=== PATIENT | male | born 1960 | race Caucasian/White ===

== ENCOUNTER → 2021-09-08 13:58 | Outpatient (BNVA) | payer OTHER, SELFPAY | PROVIDERS: PCP Family Medicine; Visit Provider Surgery | DX: Z12.11 Encounter for screening for malignant neoplasm of colon (principal) | CPT/HCPCS: 99202 ==

== ENCOUNTER 2021-10-21 06:46 | Day surgery (SDC) | payer OTHER, SELFPAY ==
[2021-10-19 13:27] VITALS: BMI 25.8
[2021-10-21 07:20] VITALS: BP 125/79; PULSE 61; RESP 18; TEMP 36.8; O2SAT 95
[2021-10-21] MEDS: sodium chloride 0.9% 1,000 ML 30 ML IV (07:29)
--- NOTE | 2021-10-21 08:12 | ANES.PREANE2 ---
Pre-Anesthetic Assessment Height/Weight: Height 1.73 m Weight 77.111 kg Temp Pulse Resp BP Pulse Ox 98.2 F 61 18 125/79 95 10/21/21 07:20 10/21/21 07:20 10/21/21 07:20 10/21/21 07:20 10/21/21 07:20 Operation Date: 10/21/21 08:15 Proposed Procedures p Colonoscopy 90169,Z12.11(Not Applicable) - Silvino Bass DO Familial anesthetic complications: none Was Beta Sly taken within 24 hours: N/A Was Clonidine taken within 24 hours: N/A Last intake: Intake Last Liquid Date 10/20/21 Last Liquid Time 21:00 Last Solid Date 10/19/21 Last Solid Time 19:00 Social No alcohol and No tobacco Exam alert, oriented x 3, clear to auscultation bilaterally and regular rate & rhythm Airway Submandibular: within normal limits Cervical ROM: within normal limits Mallampati: Class II Dentition: full History/ROS No significant history except as noted Anesthetic Plan ASA status: 1 Anesthesia: MAC Other: Difficulty hearing Medications/Allergies Home Medications Medication Instructions Recorded Confirmed Last Taken Type No Known Home Medications 09/08/21 10/19/21 Unknown History Allergies Allergy/AdvReac Type Severity Reaction Status Date / Time No Known Allergies Allergy Verified 10/19/21 13:18 Current Medications Generic Name Dose Route Start Last Admin Trade Name Freq PRN Reason Stop Dose Admin Sodium Chloride 1,000 mls @ 30 mls/hr 10/21/21 07:00 10/21/21 07:29 Sodium Chloride 0.9% IV 10/22/21 06:59 30 mls/hr .Q24H GAGE Administration PFSH Anesthesia Family History Other CAD (coronary artery disease) Cancer Dementia Denies family history of Diabetes Chronic kidney disease (CKD) Lung disease Stroke Social History Smoking and tobacco status: never smoked Second hand smoke exposure: No Alcohol intake: never Lives independently: Yes Household members: spouse Marital status: Data Anesthesia Cardiac Studies: No Data to Display
--- NOTE | 2021-10-21 08:48 | PM.HP ---
Providers/Chief Complaint Primary Care Provider: Verna Aguila MD Chief Complaint: Need for screening colonoscopy History of Present Illness Aneudy Tarango is a 61 year old male who presents for screening colonoscopy. He denies any complaints. This is an update H&P. Review of Systems General: Reports: 10 or more systems reviewed and unremarkable except in HPI and below Medications/Allergies Home Medications Medication Instructions Recorded Confirmed Last Taken Type No Known Home Medications 09/08/21 10/19/21 Unknown History Allergies Allergy/AdvReac Type Severity Reaction Status Date / Time No Known Allergies Allergy Verified 10/19/21 13:18 PFSH Acute PFSH: Family History Other CAD (coronary artery disease) Cancer Dementia Denies family history of Diabetes Chronic kidney disease (CKD) Lung disease Stroke Social History Smoking and tobacco status: never smoked Second hand smoke exposure: No Alcohol intake: never Lives independently: Yes Household members: spouse Marital status: Vitals/I&O/Wt Last Vital Signs Temp 98.2 F 10/21/21 07:20 Pulse 61 10/21/21 07:20 Resp 18 10/21/21 07:20 BP 125/79 10/21/21 07:20 Pulse Ox 95 10/21/21 07:20 Weight last 48 hrs Weight 170 lb Physical Exam Narrative: General : Patient is well developed , no acute distress, oriented x3 Head : Normal cephalic, a-traumatic. Ears : Pinnae and external canal are normal. Hearing is normal. Eyes : PERRLA, Sclera and injection are normal. No conjunctival discharge. Nose : Mucous membranes are without erythema. Throat : buccal mucosa is normal, gums are without significant recession or hypertrophy. Lungs : Equal chest rise bilaterally, no use of accessory muscles, trachea is midline. Cor : Rate and rhythm are normal. Abdomen : Soft, ND, NT, no g/r/m Extremities : No edema, no cyanosis or clubbing, dorsalis pedis pulses are present bilaterally, non-tender to palpation of calves. Upper extremities are normal bilaterally. Back : non-tender to palpation, no CVA tenderness. Neuro : CN II - XII intact, Upper and lower extremities have equal and full strength A&P Assessment and plan (1) Colon cancer screening: Status: Acute Plan Colonoscopy The risks and benefits of the procedure, including bleeding, infection, intestinal perforation requiring surgery, missed lesion, or explained to the patient. He is understanding of the risks and wishes to proceed. Attestations Medical Necessity Statement*: Patient will be discharged home Coding Level of Care Code Acute Director Of Institutional Giving for [facility] Fwd Diagnoses Colon cancer screening Z12.11
[2021-10-21 09:37] VITALS: BP 98/64; PULSE 47; RESP 18; TEMP 36.3; O2SAT 100
--- NOTE | 2021-10-21 16:16 | ANE.PACU2 ---
Inpatient post-anesthesia follow up: Airway intact: Yes Vital signs: Temperature 97.4 F Pulse Rate 47 Respiratory Rate 18 Blood Pressure 98/64 Pulse Oximetry 100 Oxygen Delivery Me thod Room Air Oxygen Flow Rate Fraction of Inspir ed Oxygen Hydration adequate: Yes Nausea and vomiting: No Pain level: 1 Mental status: Baseline
== END 2021-10-21 10:03 | disposition home or self-care (01) ==
PROVIDERS: PCP Family Medicine; Visit Provider Surgery
PROC: 0DJD8ZZ Inspection of Lower Intestinal Tract, Via Natural or Artificial Opening Endoscopic (ICD-10-PCS; CPT 45378; principal; 2021-10-21 08:15)
DX: Z12.11 Encounter for screening for malignant neoplasm of colon (principal)
CPT/HCPCS: 45378; J2704; J7030

== ENCOUNTER 2022-12-12 15:10 | Emergency (ER) | payer OTHER, SELFPAY ==
[2022-12-12 15:19] VITALS: BP 130/84; PULSE 67; RESP 16; TEMP 36.7; O2SAT 96; BMI 25.8
--- NOTE | 2022-12-12 16:27 | W.ED.EAR ---
HPI - Ear Problem General: Chief complaint: Ear Stated complaint: left ear blood inside of ear Time Seen by Provider: 12/12/22 16:08 Source: patient Mode of arrival: ambulatory Limitations: no limitations History of Present Illness: Patient is a nice 62-year-old male who presents to ED today with a complaint of discharge from his left ear. Patient states last week sometime he got stung by multiple hornets to his scalp but does not remember getting stung anywhere close to his ear so he is not sure if this incident is related. He states shortly after he began noticing some clear purulent drainage from the ear canal. He states the following day discharge seemed to improve thus delaying medical care however today he began noticing further drainage and some blood from the ear canal. He has not had any known injury or trauma to the ear. He does wear chronic hearing aids. 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 MD Complaint: ear discharge Location: left ear Severity: mild Relieving factors: nothing Exacerbating factors: nothing Discharge from ear: yes - clear, yes - bloody and yes - purulent Associated symptoms: Denies ear or mastoid pain, fever(s), headache(s) or tinnitus Treatment prior to arrival: attempt at ear wax removal Review of Systems Const: Denies: fever(s), chills, body aches, fatigue or malaise ENMT: Reports: ear discharge and change in hearing (chronic deafness in R ear; feels muffled to L ear); Denies: throat pain, odynophagia, ear or mastoid pain, tinnitus, disequilibrium, nasal discharge, nasal congestion or sinus pain GI: Denies: nausea or vomiting Neuro: Denies: headache(s) or dizziness PFSH ED PFSH: Family History Other CAD (coronary artery disease) Cancer Dementia Denies family history of Diabetes Chronic kidney disease (CKD) Lung disease Stroke Social History Smoking and tobacco status: never smoked Second hand smoke exposure: No Alcohol intake: never Substance/Drug Use: never Lives independently: Yes Household members: spouse Marital status: Physical Exam Const: COMMON NORMALS: no acute distress, average body habitus, patient oriented x3, no limitations, healthy appearing, alert and well nourished GENERAL APPEARANCE: cooperative ORIENTATION/CONSCIOUSNESS: Yes awake, Yes oriented to person, Yes oriented to place and Yes oriented to time HENMT: COMMON NORMALS: normocephalic, atraumatic, external ears normal and Normal external nose present HEAD & SCALP: normal to inspection, normocephalic and atraumatic FACE & SINUS: normal facial exam NOSE: Normal external nose present EXTERNAL EAR: Yes external ears normal, Yes mastoids normal and Yes no periauricular adenopathy EXTERNAL AUDITORY CANAL: Abnormal EAC present EAC laterality: left (abraded L EAC with inflammation and small amount of dried blood ) TYMPANIC MEMBRANE: TM normal on the left (maybe a scant effusion; no perforation) Eye: GENERAL EYE: appearance normal, both eyes and all related structures Neuro: COMMON NORMALS: patient oriented x3 SENSORIUM/ORIENTATION: Yes alert, Yes oriented to person, Yes oriented to place and Yes oriented to time Course Vital Signs: Vital signs: Vital Signs Temperature 98.1 F 12/12/22 15:19 Pulse Rate 67 12/12/22 15:19 Respiratory Rate 16 12/12/22 15:19 Blood Pressure 130/84 12/12/22 15:19 Pulse Oximetry 96 12/12/22 15:19 MDM - Ear Medical Decision Making Patient with a abraded ear canal. Could be secondary to him admittedly using Q-tips or from his hearing aids. I do not see any TM perforation. Will place him on abx/steriod combo otic drops. Recommend follow up with PCP in 3-4 days if symptoms to not seem to be improving or if he starts developing any significant pain or hearing loss. Return to ED precautions given. Discharge Plan Discharge Patient Disposition: Home Clinical Impression: Ear canal abrasion Qualifiers: Encounter type: initial encounter Laterality: left Qualified Code(s): S00.412A - Abrasion of left ear, initial encounter Condition: Stable Prescriptions: New Ciprodex 0.3-0.1 % drops,suspension 4 drp otic (ear) BID 7 Days Qty: 7.5 0RF Discharge Orders: Discharge ED (Routine); Ordered 12/12/22 Ordered By: Roxana Marx Referrals: Verna Aguila MD [Primary Care Provider] - Activity Restrictions/Additional Instructions: As we discussed if symptoms do not improve over the next 2 to 3 days [facility]. Coding Level of Care Code ED Event Promotions Coordinator for Evi Zabala
== END 2022-12-12 16:41 | disposition home or self-care (01) ==
PROVIDERS: Emergency Provider Physician Assistant; PCP Family Medicine
DX: S00.412A Abrasion of left ear, initial encounter (principal); X58.XXXA Exposure to other specified factors, initial encounter
CPT/HCPCS: 99283

== ENCOUNTER 2024-09-17 13:59 | Outpatient (CLI) | payer OTHER, SELFPAY ==
--- NOTE | 2024-09-17 14:05 | USCV_ITS ---
Aneudy Tarango Age: 63 Gender: M : 1960 Exam Date: 09/17/2024 14:35 Ordering Phys: Verna Aguila MD Technologist: USR [place]am [place] [facility] [place] Indication: right sided face paralysis Risk Factors: Previous Vascular Surgery: Right Brachial BP: / Left Brachial BP: / Right Left Velocity (cm/s) Spectral Plaque Velocity (cm/s) Spectral Plaque Syst/Diast Broadening Syst/Diast Broadening 105.10/26.60 Prox CCA 110.40/ 29.10 106.60/33.80 Mid CCA 119.30/ 34.80 104.20/28.40 Distal CCA 79.70 / 27.30 75.80/ 22.40 Prox ICA 51.70 / 16.90 66.90/ 14.80 Mid ICA 63.30 / 23.40 47.80/ 18.60 Distal ICA 46.00 / 22.10 78.60 ECA 69.60 0.70 ICA/CCA Antegrade Vertebral Antegrade 51.00/ 16.50 cm/s 53.70/ 15.30 cm/s Clarion Subclavian Tri 107.0 114.5 0 0 CONCLUSIONS Right ICA stenosis <50%. Mild atheromatous plaque right carotid bulb/ICA. Left ICA stenosis <50%. Mild atheromatous plaque left carotid bulb/ICA. Normal antegrade Doppler flow noted in the right vertebral artery. Normal antegrade Doppler flow noted in the left vertebral artery. Domingo Haines MD (Electronically Signed) Final Date: 17 September 2024 15:45 S
== END 2024-09-17 14:00 | disposition home or self-care (01) ==
LOC: RAD 14:01
PROVIDERS: PCP Family Medicine; Visit Provider Family Medicine
DX: G45.9 Transient cerebral ischemic attack, unspecified (principal); I67.2 Cerebral atherosclerosis
CPT/HCPCS: 93880

== ENCOUNTER 2024-09-18 09:39 | Outpatient (CLI) | payer OTHER, SELFPAY ==
--- NOTE | 2024-09-18 09:42 | ECG_ITS ---
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 Interpretive Statements Lung unchanged pre/post procedure; Intraprocedure shortess of breath; Symptoms resoled by discharge PROCEDURE: The baseline electrocardiogram showed sinus bradycardia with a poor R wave progression. At the baseline, the patient's blood pressure was 130/90 mm Hg with a heart rate of 51. The patient exercised for 10 minutes and 46 seconds on a standard Low protocol. Patient attained a maximum heart rate of 158 beats per minute(100% of the maximum predicted heart rate) with a blood pressure at the peak exercise of 198/70 mm Hg. The EKG at the peak exercise revealed [address] depression in lead V5 and V6. Some nonspecific ST-T changes in the other leads. Patient did not have any chest pain or any significant arrhythmis with the exercise Sestamibi was injected 1 minute prior to the peak exercise During the recovery phase, there were no new changes. Blood pressure at the end of the recovery phase was 144/77 mm Hg with a heart rate of 89 per minute. The EKG reverted back to the baseline CONCLUSION: 1. Abnormal EKG response to treadmill exercise, suggesting anterolateral ischemia 2. No exercise-induced chest pain or cardiac arrhythmia 3. Good exercise tolerance, attained a maximum of 13.5 METs 4. Sestamibi/Sestamibi perfusion results pending; see separate report. Electronically Signed On 09-22-2024 21:55:55 CDT by Adilia Mcneal M.D. [email or web address]
--- NOTE | 2024-09-18 09:43 | NMCV_ITS ---
NM marian perf SPECT r/s* [id number] Aneudy Tarango Age: 63 Gender: M : 1960 Exam Date: 09/18/2024 10:37 Ordering Phys: Verna Aguila MD Technologist: TWAN Jean Exam Location: [facility] Indications: CP STRESS TEST Please see separate stress test report in [facility] for full findings IMAGE PROTOCOL Rest/Stress 1 Exercise Day Radiopharmaceutical Dose (mCi) Administration Site Administered by Rest: Tc-99m 10.6 IV Bernadette Adames, BARK SPUDDER Sestamibi Stress:Tc-99m 33 IV Bernadette Adames, BARK SPUDDER Sestamibi Rest: 18-Sep-2024 60 Discovery 630 Stress: 18-Sep-2024 15 Discovery 630 Radiopharmaceutical was injected at 96 % maximum heart rate. Images obtained in supine and prone position. SPECT RESULTS Technical Quality: Good Raw Data Analysis: Normal Image Corrections: No attenuation or motion correction applied Summed Stress Score: 0 Summed Rest Score: 2 Summed Difference Score: 0 PERFUSION FINDINGS Uniform myocardial tracer uptake with no significant perfusion abnormalities FUNCTIONAL RESULTS (calculated via Gated SPECT) Stress Image LV EF (%): 74 Stress EDV (mL):88 TID: 0.71 Stress ESV (mL):23 FUNCTIONAL FINDINGS: Segmental wall motion analysis revealing no gross wall motion abnormalities IMPRESSIONS 1. Myocardial perfusion imaging revealing uniform myocardial tracer uptake with no significant Perfusion abnormalities 2. Normal LV ejection fraction 74%. 3. LV wall motion analysis revealing no gross wall motion abnormalities. 4. Normal LV volume Low probability for coronary ischemia, based on the above findings No similar previous studies are available for comparison Dr Adilia Mcneal MD FAC (Electronically Signed) Final Date: 18 September 2024 16:29 S
[2024-09-18 09:48] VITALS: BMI 26.1
[2024-09-18 11:31] VITALS: BP 125/79; PULSE 88
== END 2024-09-18 09:40 | disposition home or self-care (01) ==
LOC: CDL 09:41
PROVIDERS: PCP Family Medicine; Visit Provider Family Medicine
DX: R06.09 Other forms of dyspnea (principal); R93.1 Abnormal findings on diagnostic imaging of heart and coronary circulation
CPT/HCPCS: 36415; 78452; 93017; A9500

== ENCOUNTER 2024-09-23 09:11 | Outpatient (CLI) | payer OTHER, SELFPAY ==
--- NOTE | 2024-09-23 09:19 | MR_ITS ---
WS: [id number] MRI HEAD WITH CONTRAST TECHNIQUE: Sagittal T1, T2 axial, T2 axial FLAIR, axial susceptibility weighted imaging, axial diffusion weighted images, and coronal T2 images were obtained. Pre and post-T1 axial and post T1 coronal images. ADC and FSPGR images. CLINICAL INFORMATION: R FACIAL NUMBNESS/PARALYSIS/?STROKE COMPARISON: None. FINDINGS: No evidence of restricted diffusion to suggest acute ischemia. No suspicious intracranial signal normalities. Mild parenchymal volume loss. Normal posterior fossa. Normal vascular flow voids at the skull base. No extra-axial fluid collections. Paranasal sinuses are well aerated. Prior postoperative changes RIGHT partial mastoidectomy. Dedicated IAC protocol not performed. Normal optic chiasm and pituitary infundibulum. Temporal lobes hippocampal formations are normal in appearance. No abnormal intracranial enhancement. No other acute findings. MR/MR head wo/w con [id number] IMPRESSION: 1. No evidence of restricted diffusion to suggest acute ischemia. 2. No suspicious intracranial signal abnormalities. Mild parenchymal volume lo ss. 3. No abnormal gadolinium enhancement. 4. Prior postoperative changes RIGHT partial mastoidectomy. Dedicated IAC prot ocol not performed. If concern for recurrent schwannoma, this could be further evaluated MRI IAC protocol without and with gadolinium enhancement. However, no concerning areas of enhancement on today's study 5. No other acute findings.
[2024-09-23] MEDS: gadobenate dimeglumine 20 mL vial 16 ML IV (10:19)
== END 2024-09-23 09:12 | disposition home or self-care (01) ==
PROVIDERS: PCP Family Medicine; Visit Provider Family Medicine
DX: Z01.89 Encounter for other specified special examinations (principal); R93.0 Abnormal findings on diagnostic imaging of skull and head, not elsewhere classified; Z98.890 Other specified postprocedural states
CPT/HCPCS: 70553

== ENCOUNTER 2024-10-15 14:19 | Outpatient (CLI) | payer OTHER, SELFPAY ==
--- NOTE | 2024-10-15 14:24 | CT_ITS ---
WS: [id number] CT ABDOMEN AND PELVIS WITH CONTRAST HISTORY: IRON DEF/ANEMIA/NO ACUTE BLEEDING TECHNIQUE: Imaging performed of the abdomen and pelvis with IV contrast. Single phase imaging of the abdomen. Coronal and sagittal reformats are submitted. All CT scans at [facility] use at least one of these dose optimization techniques: automated exposure control; mA and/or kV adjustment per patient size (includes targeted exams where dose is matched to clinical indication); or iterative reconstruction. IV CONTRAST: Omnipaque 350; 100 mL IV. Oral contrast: Yes. DLP: 353.01 mGy.cm COMPARISON: 11/07/2016 Lower thorax: 3 mm subcortical nodule RIGHT middle lobe. Heart is normal size. No hiatal hernia. Liver/biliary system: Normal size with no intrahepatic dilatation. Gallbladder: Normal. No gallstones or wall thickening. No pericholecystic fluid. Pancreas: Normal size pancreas and pancreatic duct. No adjacent inflammation. Spleen: Normal size spleen. No mass or infarct. Adrenal glands: Normal. Right kidney: Normal. Left kidney: Normal. Aorta: Normal. Lymphadenopathy: Small central mesenteric lymph nodes measure up to 5 mm. Free fluid: None. GI tract: Well distended stomach. No small bowel obstruction. Normal appendix. There is very mild rectal wall thickening extending over a length of several centimeters. Rectal wall thickening measures up to 7 mm. No discrete mass identified. There is an additional area of mild narrowing involving the proximal sigmoid colon. No mass identified or inflammation. There are a few scattered minimal diverticula. Abdominal wall: Fat containing umbilical hernia. Focal calcification along the LEFT anterior abdominal wall measures 18 mm in length. May be from prior hematoma. Pelvis: No free fluid or adenopathy within the pelvis. Bones: Unremarkable. CT/CT abdomen pelvis w con* [id number] IMPRESSION: 1. No GI tract obstruction. 2. Normal appendix. 3. Mild circumferential rectal wall thickening extending over a length of abiel ral centimeters. With history of rectal bleeding consider follow-up with colono scopy. No obstructing mass identified. 4. No renal obstruction. 5. There are a few very small central mesenteric lymph nodes which are not chiqui suring pathologic and similar to the study from 2017.
[2024-10-15] MEDS: iohexol 350 mg/mL 500 mL Btl (per mL) PO (14:32)
[2024-10-15] MEDS: iohexol 350 mg/mL 500 mL Btl (per mL) IV (15:22)
== END 2024-10-15 14:20 | disposition home or self-care (01) ==
LOC: RAD 14:20
PROVIDERS: PCP Family Medicine; Visit Provider Family Medicine
DX: D50.9 Iron deficiency anemia, unspecified (principal)
CPT/HCPCS: 74177